=== PATIENT | female | born 1950 | race Caucasian/White ===

== ENCOUNTER → 2017-07-16 17:59 | Outpatient (CLI) | payer BC | END | disposition home or self-care (01) | LOC: D.MAMMO 15:30 | DX: Z12.31 Encounter for screening mammogram for malignant neoplasm of breast (principal) ==

== ENCOUNTER → 2017-07-28 16:48 | Outpatient (CLI) | payer BC | END | disposition home or self-care (01) | LOC: D.MAMMO 12:00 | DX: R92.8 Other abnormal and inconclusive findings on diagnostic imaging of breast (principal) ==

== ENCOUNTER → 2018-01-25 22:39 | Outpatient (CLI) | payer MEDICARE, BC | END | disposition home or self-care (01) | LOC: D.MAMMO 13:30 | DX: R92.0 Mammographic microcalcification found on diagnostic imaging of breast (principal); R92.8 Other abnormal and inconclusive findings on diagnostic imaging of breast ==

== ENCOUNTER 2018-08-12 10:27 | Day surgery (SDC) | payer MEDICARE, BC ==
[2018-08-11 11:20] LABS: HEMOGLOBIN 14.7 g/dL (12-16); MCH 29.9 pg (26.0-34.0); MCHC 34.2 g/dL (31.0-37.0); MCV 87.4 fL (80.0-100.0); MEAN PLATELET VOLUME 9.9 fL (7.4-10.4); RBC 4.92 10x6/uL (4.00-5.40); WBC 7.6 10x3/uL (4.8-10.8)
== END 2018-08-12 16:45 | disposition home or self-care (01) ==
LOC: D.OPS 10:27
PROVIDERS: Anesthesiology
DX: M21.621 Bunionette of right foot (principal)

== ENCOUNTER 2018-10-21 10:30 | Day surgery (SDC) | payer MEDICARE, BC ==
[2018-10-20 10:09] LABS: HEMATOCRIT 39.4 % (36.0-48.0); HEMOGLOBIN 13.5 g/dL (12-16); MCH 29.7 pg (26.0-34.0); MCHC 34.3 g/dL (31.0-37.0); MCV 86.6 fL (80.0-100.0); MEAN PLATELET VOLUME 9.2 fL (7.4-10.4); RBC 4.55 10x6/uL (4.00-5.40); RDW 13.1 % (11.5-14.5); WBC 5.9 10x3/uL (4.8-10.8)
[2018-10-20 10:19] LABS: CALC OSMOLALITY 284 mosm/kg (275-300); CALCIUM 9.2 mg/dL (8.5-10.1); CARBON DIOXIDE 31.3 mmol/L (21.0-32.0); CHLORIDE - SERUM 105 mmol/L (98-107); CREATININE - SERUM 0.8 mg/dL (0.6-1.3); POTASSIUM - SERUM 3.8 mmol/L (3.5-5.1); SODIUM 143 mmol/L (136-145); UREA NITROGEN 15 mg/dL (7-18); eGFR NON AFRICAN AMERICAN 76 mL/min (90-120)
[2018-10-20 10:22] LABS: GLUCOSE 82 mg/dL (74-106)
[~2018-10-21] VITALS: Ht 167.6 cm; Wt 65.8 kg
[~2018-10-21 10:30] MED LIST: CALAN SR240 MG PO; HCTZ25 MG PO; HYALURONIC ACID; MELATONIN 3 MG1 TAB PO; NEXIUM40 MG PO; SINGULAIR10 MG PO; TOPROL XL25 MG PO; ZOLOFT50 MG PO
[2018-10-21 12:35] VITALS: BP 154/82; Ht 167.6 cm; Wt 65.8 kg
--- NOTE | 2018-10-21 16:30 | NUR ---
REC'D FROM RR. FAMILY AT BEDSIDE. DRESSING CDI TO FOOT. ICE PACK IN PLACE. COLA BROUGHT TO PT.
--- NOTE | 2018-10-21 16:45 | NUR ---
FEELING ALITTLE NAUSEATED. ALCOHOL WIPES GIVEN TO PT AND SLATINE CRACKERS.
--- NOTE | 2018-10-21 17:00 | NUR ---
FL TRAY GIVEN TO PT. EATING SLOWLY. NAUSEA IS BETTER.
--- NOTE | 2018-10-21 18:10 | NUR ---
TOLERATED DIET. AMBULATED TO BATHROOM AND VOIDED WITHOUT DIFFICULTY. IV DC'D WITH CATHETER INTACT.
--- NOTE | 2018-10-21 18:25 | NUR ---
WRITTEN AND VERBAL DC INST. GIVEN TO PT. ICE PACKS SENT HOME WITH PT. VERBALIZED UNDERSTANDING.
--- NOTE | 2018-10-21 18:30 | NUR ---
DC'D HOME WITH FAMILY VIA PRIVATE VEHICLE. TAKEN TO VEHICLE VIA WC. STABLE AT TIME OF DC.
--- NOTE | 2018-11-04 17:49 | OP ---
PATIENT NAME: VEGA BALDERRAMA MEDICAL RECORD: [id number] :54 LOCATION:D.OPS ADMISSION DATE: SURGEON: RAY RASMUSSEN DATE OF OPERATION: 10/21/2018 SURGEON: Ray Rasmussen DPM PREOPERATIVE DIAGNOSES: 1. Hallux abductovalgus deformity, left foot. 2. Tailor's bunion, left foot. 3. Hammertoe, second toe, left foot. 4. Neuroma, third intermetatarsal space, left foot. POSTOPERATIVE DIAGNOSES: 1. Hallux abductovalgus deformity, left foot. 2. Tailor's bunion, left foot. 3. Hammertoe, second toe, left foot. 4. Neuroma, third intermetatarsal space, left foot. PROCEDURE: 1. Elijah/Cristian bunionectomy, left foot. 2. Tailor's bunionectomy, left foot. 3. Arthrodesis second proximal interphalangeal joint of left foot. 4. Excision neuroma, third intermetatarsal space, left foot. ANESTHESIA: General. HEMOSTASIS: Pneumatic ankle tourniquet inflated to 250 mmHg. ESTIMATED BLOOD LOSS: Minimal. MATERIALS: Two 2.5 mm headless Dart-Fire screws ([employer]) and one 9 mm Quick Staple ([employer]). INJECTABLES: 30 mL of 0.5% bupivacaine plain. The patient has longstanding history of pain associated with the above-mentioned foot pathologies. She is here today for surgical correction. We have discussed the proposed procedure, risks and benefits were reviewed. Complications were discussed. All questions were answered. She was appropriately consented for the above-mentioned procedures. The patient was brought in the operating room and placed on the operating table in supine position. A timeout was called with Dr. aRsmussen, who identified the patient, the surgical sites and the surgeries to be performed. Once appropriate anesthesia was obtained, the foot was prepped and draped in the usual aseptic manner. The pneumatic ankle tourniquet was inflated to 250 mmHg on the well-padded left ankle. PROCEDURE #1: Elijah/Cristian bunionectomy, left foot. Attention was directed to the dorsal aspect of the first metatarsophalangeal joint where a 6 cm linear incision was made just medial to the extensor hallucis OPERATIVE REPORT [id number] BREASHEARS,VEGA DRAKE longus tendon. This incision was carried deep to soft tissue with care being taken to retract all vital neurovascular structures. All bleeders were cauterized along the way. The first intermetatarsal space was then entered utilizing both sharp and blunt dissection. The conjoined tendon of the adductor hallucis muscle was noted at the base of the proximal phalanx and was sharply transected at this level. Attention was then directed further proximally to the level of fibular sesamoidal ligament and it too was sharply transected. The periosteum was then reflected from the head of the first metatarsal and the base of the proximal phalanx, thus exposing the hypertrophied medial eminence of the first metatarsal and the first metatarsophalangeal joint. Utilizing a sagittal saw, all hypertrophied bone was removed. Next, utilizing a sagittal saw, a V-shaped osteotomy was created in the head of the first metatarsal. This is a through and through osteotomy with the apex oriented distally. The capital fragment was shifted laterally and impacted upon the first metatarsal shaft. Next, utilizing manufacture's recommended technique, one 2.5 mm cannulated screw was placed across the osteotomy. All remaining over hanging bone from the medial aspect of the first metatarsal shaft was removed with a bone saw. Attention was then directed to the proximal phalanx where a V-shaped osteotomy was created utilizing a sagittal saw, this was a closing wedge with the apex oriented laterally. The wedge of bone was removed. The osteotomy was reduced. Next, utilizing manufacture's recommended technique, one 9 mm Quick Staple was placed across this osteotomy. Surgical site was then irrigated with copious amounts of normal sterile saline via bulb syringe. The periosteum was reapproximated and coapted using 3-0 Vicryl. The subQ was reapproximated and coapted utilizing 3-0 Vicryl. The skin was reapproximated and coapted utilizing 4-0 nylon. PROCEDURE #2: Tailor's bunion, left foot. Attention was directed to the lateral aspect of the left foot where a 4-cm linear incision was made directly over the fifth metatarsal head. This incision was carried deep to soft tissue with care being taken to retract all vital neurovascular structures. All bleeders were cauterized along the way. The periosteum was then reflected from the head of the fifth metatarsal, thus revealing the hypertrophied lateral eminence. Next, utilizing a sagittal saw, all hypertrophied bone was removed. All rough and sharp bone edges were smoothed with a rasp. The surgical site was then irrigated with copious amounts of normal sterile saline via bulb syringe. The periosteum was then reapproximated and coapted using 3-0 Vicryl. The subQ was then reapproximated and coapted using 3-0 Vicryl. The skin was then reapproximated and coapted utilizing 4-0 nylon. Arthrodesis, second toe, left foot. Attention was directed to the dorsal aspect of the second toe of the left foot where a 4-cm linear incision was made. This incision was carried deep to soft tissue with care being taken to retract all vital neurovascular structures. All bleeders were cauterized along the way. The extensor tendon was then transected at the level of the proximal interphalangeal joint. All soft tissue attachments were freed from the head of the proximal phalanx, thus exposing this aspect of the bone. Utilizing a sagittal saw, the head of the proximal phalanx was removed. All cartilage was then denuded from the base of the middle phalanx with a rongeur and rasp. Next, utilizing manufacture's recommended technique, one 2.5 mm x 20 mm headless Dart-Fire screw was placed across the proximal interphalangeal joint. Proper placement of the screw was confirmed via C-arm. The surgical site was then irrigated with copious amounts of normal sterile OPERATIVE REPORT [id number] VEGA BALDERRAMA saline via bulb syringe. The extensor tendon was then reapproximated and coapted using 3-0 Vicryl. The subQ was then reapproximated and coapted using 3-0 Vicryl. The skin was reapproximated and coapted using 4-0 nylon. The excision neuroma, third intermetatarsal space, left foot. Attention was directed to the third intermetatarsal space where a 3-cm linear incision was made. This incision was carried deep to soft tissue with care being taken to retract all vital neurovascular structures. All bleeders were cauterized along the way. The deep transverse intermetatarsal ligament was then identified and sharply transected. The neuroma was noted to reside just beneath this ligament. The neuroma was then traced as far proximally and distally as possible and sharply transected. The neuroma was removed from the field. The surgical site was then irrigated with copious amounts of normal sterile saline via bulb syringe. The surgical site was then investigated for any remaining pathological tissue and none was noted. The subQ was then reapproximated and coapted using 3-0 Vicryl. The skin was then reapproximated and coapted using 4-0 nylon. A dressing consisting of Xeroform, 4 x 4's, Kerlix, and Tommy bandage was applied to the left foot. The pneumatic ankle tourniquet was deflated and cap refill time is immediate to all digits of the left foot. The patient was discharged home with instructions to ice and elevate the left foot. She was dispensed a boot to further help offload the surgical site. She has my cell phone number for any afterhours difficulties. She was dispensed pain medication including [place] 7.5/325 and tramadol 50 mg. There were no complications with this procedure and we will follow up with her in the office next week. TRANSINT:[id number] Voice Confirmation ID: [id number] DOCUMENT ID: [id number] RAY RASMUSSEN at 1749 CC: [id number] DICTATION DATE: 10/21/18 1549 CHIEF ORTHOPTIST: 10/21/182008 [facility] 10/21/[address] [address]
== END 2018-10-21 18:30 | disposition home or self-care (01) ==
LOC: D.OPS 10:30 → D.PAN 13:30 → D.OPS 13:30
PROVIDERS: Anesthesiology
DX: M20.12 Hallux valgus (acquired), left foot (principal); M21.622 Bunionette of left foot; M20.42 Other hammer toe(s) (acquired), left foot; G57.62 Lesion of plantar nerve, left lower limb

== ENCOUNTER → 2019-03-23 10:53 | Outpatient (CLI) | payer MEDICARE, BC ==
[2018-10-21 12:35] VITALS: BMI 23.4
--- NOTE | 2019-03-25 16:51 | ST ---
PATIENT:VEGA BALDERRAMA MEDICAL RECORD: [id number] SEX: F LOCATION:[facility] ORDER #: ADMISSION DATE: 03/23/19 AGE OF PATIENT: 68 REFERRING PHYSICIAN: INTERPRETING PHYSICIAN: MARIANNA PERALTA MD DATE OF SERVICE: 03/23/2019 NUCLEAR STRESS TEST INDICATION: Chest pain, shortness of breath, hypertension, hyperlipidemia. She was exercised on standard Lexiscan protocol with 28 mCi of sestamibi injected at peak stress. 10 mCi used previously for rest images. FINDINGS: Gated SPECT reveals an excellent ejection fraction greater than 80% with good wall motion thickening and brightness throughout the segments. SPECT IMAGING: Cardiolite was used for a myocardial perfusion agent. There is homogeneous uptake throughout all segments at rest and stress with no evidence of inducible ischemia or previous infarction. OVERALL IMPRESSION: This is a normal rest-stress Cardiolite with no evidence of inducible ischemia or previous infarction. A gated SPECT reveals preserved ejection fraction greater than 80%. At this time I would evaluate noncardiac etiology of chest pain. TRANSINT:[id number] Voice Confirmation ID: [id number] DOCUMENT ID: [id number] MARIANNA PERALTA MD at 1651 CC: JANICE LEE MD [id number] DICTATION DATE: 03/23/19 1645 PHARMACIST INTERN: 03/24/19 0056 DEP CLI 03/23/19 [id number] [place] [address]
== END | disposition home or self-care (01) ==
LOC: D.HCCARDIO 10:53
PROVIDERS: ATTEND Internal Medicine Interventional Cardiology
DX: R00.2 Palpitations (principal)

== ENCOUNTER → 2019-04-18 12:32 | Outpatient (CLI) | payer MEDICARE, BC ==
[2018-10-21 12:35] VITALS: BMI 23.4
[~2019-04-18 12:32] MED LIST changes: +BETAPACE 80 MG80 MG PO
--- NOTE | 2019-04-26 12:04 | EC ---
PATIENT:VEGA BALDERRAMA DATE OF SERVICE: 04/18/19 SEX: F MEDICAL RECORD: [id number] DATE OF : 54 LOCATION:[facility] AGE OF PATIENT: 68 ADMISSION DATE: 04/18/19 REFERRING PHYSICIAN: INTERPRETING PHYSICIAN: MARIANNA RIOS MD ECHOCARDIOGRAM REPORT ECHO CHARGES 4 ECHO COMPLETE Date: 04/26/19 CLINICAL DIAGNOSIS: DYSPNEA/ATRIAL FIB ECHOCARDIOGRAPHIC MEASUREMENTS (adult normal given) AC root (d.<3.7cm) 3.6 cm LV Septum d (<1.2 cm> 1.3 cm Valve Excursion 2.0 cm LV Septum (systole) 1.4 cm Left Atria (s.<4.0cm> 4.1 cm LVPW d(<1.2cm) 1.2 cm RV (d.<2.3cm) 3.1 cm LVPW (sytole) 1.8 cm LV diastole(<5.6CM) 4.9 cm MV E-F(>70mm/sec) cm LV systole 3.0 cm LVOT Diameter 1.8 cm MV exc.(>10mm) 1.9 cm Est.ejection fraction (50-75%) % DOPPLER: LVIT cm/sec A 69.0 cm/sec E 98.0 cm/sec LA cm/sec RVSP 38 mmHg LVOT 108 cm/sec AOP1/2T m/s Asc. Ao 121 cm/sec RVOT 53 cm/sec RA cm/sec PA 95 cm/sec AV Gradient Peak 5.88 mmHg AV Mean 3.07 mmHg AV Area 2.4 cm MV Gradient Peak 5.18 mmHg MV Mean 1.44 mmHg MV Area cm COMMENTS: Platform Operations Director: 2 ROMA RUSH Senior Capital Markets Specialist: 1 Dr. Rios TAPE# PACS Pericardial Effusion N DATE OF SERVICE: FINDINGS: 1. Left ventricular chamber size is within normal limits. Left ventricular systolic function is normal at 65%. 2. The left atrium is mildly dilated at 4.1 cm. Right atrium and right ventricular chamber sizes are within normal limits. 3. Valvular structures have normal structure and motion. 4. Doppler interrogation reveals only trace mitral regurgitation, mild tricuspid regurgitation, no other valvular insufficiency or stenosis. ECHOCARDIOGRAM REPORT [id number] VEGA BALDERRAMA 5. No evidence of pericardial effusion or left ventricular thrombus. TRANSINT:[id number] Voice Confirmation ID: [id number] DOCUMENT ID: [id number] MARIANNA RIOS MD at 1204 CC: [id number] DICTATION DATE: 04/25/19 1137 CHIEF PHYSICAL THERAPIST: 04/25/19 1147 DEP CLI 04/18/[address] [address]
== END | disposition home or self-care (01) ==
LOC: D.HCCARDIO 12:32
PROVIDERS: ATTEND Internal Medicine Interventional Cardiology
DX: R06.02 Shortness of breath (principal)

== ENCOUNTER 2019-04-26 11:35 | Outpatient (CLI) | payer MEDICARE, BC ==
[~2019-04-26] VITALS: Ht 167.6 cm; Wt 68.0 kg
--- NOTE | ~2019-04-26 | HEMODYNAMI ---
PATIENT:VEGA BALDERRAMA MEDICAL RECORD: [id number] : 54 LOCATION:[facility] ADMISSION DATE: 04/26/19 Generatedon:04/26/201914:26 Patient name: VEGA BALDERRAMA Patient #: [id number] SS N: : 1950 Date of study: 04/26/2019 Page: Of Hemodynamic Procedure Report Patient Data Patient Demographics Procedure consent was obtained First Name: VEGA Gender: Female Last Name: TACOS : 1950 [facility] Initial: DRAKE Age: 68 year(s) Patient #: [id number] Race: Unknown Additional ID: [id number] Contact details [address]: [address] [place] [address] point State: [place] City: [place] Zip code: [address] Past Medical History Allergies Allergen Reaction Date Comments Reported Other allergy 04/26/2019 HYDROCODONE Admission Admission Data Admission Date: 04/26/2019 Admission Time: 11:35 Weight (lbs.): 149.92 Weight (kg.): 68 Lab Results Lab Result Date: 04/26/2019 Lab Result Time: 0:00 CBC Name Units Result Min Max Hematocrit % 39.2 -*(----)-- 42 54 Hemoglobin g/dl 13.5 --(*---)-- 13.5 17.5 Procedure Procedure Types Cath Procedure Diagnostic Procedure PPM/ICD PPM Dual Implant Procedure Description Procedure Date Procedure Date: 04/26/2019 Procedure Start Time: 13:22 Procedure End Time: 13:45 Procedure Staff Name Function Giovani Mujica RT Monitor Carl Escobar MD Assisting physician Rickey Garcia MD Performing Physician Luis Garcia RN Nurse Jazmyn Hendrickson RT Scrub Procedure Data Cath Procedure Fluoroscopy Diagnostic fluoroscopy Total fluoroscopy Time: 1.3 time: 1.3 min min Diagnostic fluoroscopy Total fluoroscopy dose: dose: 21.3 mGy 21.3 mGy Contrast Material Contrast Material Type Amount (ml) Isovue 300 0 Estimated blood loss: 5 ml Procedure Complications No complications Procedure Medications Medication Administration Route Dosage 0.9% NaCl I.V. 100 ml/hr Oxygen etCO2 Nasal cannula 2 l/min Lidocaine 1% added to field 20 Ancef (1Gm/50ml NS) I.V.P.B 1 g Ancef Irrigation Topical 1 g (1gm/500ml NS) Versed I.V. 2 mg Fentanyl I.V. 100 mcg Versed I.V. 0.5 mg Fentanyl I.V. 50 mcg Lidocaine 1% added to field 20 Ancef Irrigation Topical 1 g (1gm/500ml NS) Fentanyl I.V. 25 mcg Hemodynamics Rest HGB: 13.5 (g/dl) Heart Rate: 46 (bpm) Snapshots Pre Cath Intra NCS Post Cath Vital Signs Time Heart Resp SPO2 etCO2 NIBP (mmHg) Rhythm Pain Sedation Rate (ipm) (%) (mmHg) Status Level (bpm) 13:07:55 48 29 100 36.8 146/72(126) NSR 0 (11) 10(A) , No pain 13:12:14 47 19 100 29.2 130/64(107) NSR 0 (11) 10(A) , No pain 13:16:28 48 17 99 30 111/61(88) NSR 0 (11) 10(A) , No pain 13:21:40 42 15 100 0 131/58(102) NSR 0 (11) 10(A) , No pain 13:25:54 267 16 100 51 144/65(109) NSR 0 (11) 10(A) , No pain 13:30:08 48 22 99 0 104/66(76) NSR 0 (11) 9(A) , No pain 13:34:11 36 35 92 0 106/66(92) NSR 0 (11) 9(A) , No pain 13:39:17 42 16 93 40.5 129/65(93) NSR 0 (11) 9(A) , No pain 13:43:31 60 14 95 45 126/61(99) Paced 0 (11) 9(A) , No pain 14:06:47 48 13 95 41.3 138/78(115) Paced 0 (11) 9(A) , No pain 14:11:00 69 12 100 42.8 146/78(116) Paced 0 (11) 10(A) , No pain 14:15:11 69 15 100 41.2 143/82(108) Paced 0 (11) 10(A) , No pain 14:19:21 69 8 99 39.7 142/83(122) Paced 0 (11) 10(A) , No pain 14:23:33 64 9 99 30.7 140/80(126) Paced 0 (11) 10(A) , No pain Medications Time Medication Route Dose Verified Delivered Reason Notes Effectiv eness by by 13:14:53 0.9% NaCl I.V. 100 Luis Luis Per ml/hr Lorigan Lorigan physician RN RN 13:15:04 Oxygen etCO2 2 Luis Luis for low 02 Nasal l/min Lorigan Lorigan sats cannula RN RN 13:15:27 Lidocaine added 20ml Luis Luis for local 1% to vial Lorigan Lorigan anesthetic field x2 RN RN 13:16:26 Ancef I.V.P.B 1 g Luis Luis Per (1Gm/50ml Lorigan Lorigan physician NS) RN RN 13:19:28 Ancef Topical 1 g Luis Luis used for Irrigation Lorigan Lorigan procedure (1gm/500ml RN RN NS) 13:23:05 Versed I.V. 2 mg Luis Luis for Lorigan Lorigan sedation RN RN 13:23:16 Fentanyl I.V. 100 Luis Luis for mcg Lorigan Lorigan sedation RN RN 13:25:43 Versed I.V. 0.5 Luis Luis for mg Lorigan Lorigan sedation RN RN 13:25:52 Fentanyl I.V. 50 Luis Luis for mcg Lorigan Lorigan sedation RN RN 14:06:33 Lidocaine added 20ml Luis Luis for local 1% to vial Lorigan Lorigan anesthetic field x2 RN RN 14:06:53 Ancef Topical 1 g Luis Luis used for Irrigation Lorigan Lorigan procedure (1gm/500ml RN RN NS) 14:18:13 Fentanyl I.V. 25 Luis Luis for mcg Lorigan Lorigan sedation RN online communications manager Log Time Note 12:32:05 Signed procedure consent form obtained from patient. 12:32:07 Procedure Status Elective Heart Cath (OP). 12:32:09 Time tracking: Regular hours (M-F 7:00 - 5:00) 12:32:12 Plan of Care:Hemodynamics will remain stable., Cardiac rhythm will remain stable., Comfort level will be maintained., Respiratory function will remain adequate., Patient/ family verbilizes understanding of procedure., Procedure tolerated without complication., Recovers from procedure without complications.. 12:34:18 Patient Weight : 149.92 lbs 12:35:00 Patient allergic to Other allergyHYDROCODONE 12:35:15 Lab Result : Hematocrit 39.2 % 12:35:15 Lab Result : Hemoglobin 13.5 g/dl 12:35:30 Use device set JASON PPM 12:35:31 2-0 Ticron Multipack ([id number]) opened to sterile field. 12:35:32 5-0 Monocryl PS2 [id number] opened to sterile field. 12:35:32 3-0 Vicryl Single Pack [id number] opened to sterile field. 12:35:34 Mepilex Dressing ([id number]) opened to sterile field. 12:35:34 Cautery Pushbutton Pencil opened to sterile field. 12:35:34 Cautery Tip Digital Content Producer opened to sterile field. 12:35:35 Immobilizer Extra Large opened to sterile field. 12:39:25 Medtronic 4574-45 PPM Lead opened to sterile field. 12:39:25 Medtronic 4074-52 PPM Lead opened to sterile field. 12:39:[address] Generator [id number] opened to sterile field. 12:42:47 Medtronic healthcare sales representative ARTIE MORENO present for procedure. 12:50:20 Jazmyn Hendrickson RT(R) sent for patient. Start room use. 12:56:33 Patient received from Pre/Post Procedure Room to CCL 3 Alert and oriented. Tansferred to table in Supine position. 12:56:34 Warm blankets applied, and adriana hugger turned on for patient comfort. 12:56:35 ECG and BP/O2 sat monitors applied to patient. 12:56:35 Correct patient and procedure confirmed by team. 13:06:43 Vital chart was started 13:06:48 Baseline sample Acquired. 13:06:52 Rhythm: sinus bradycardia 13:06:54 Full Disclosure recording started 13:07:01 H&P Date Dictated: 04/18/2019 Within 30 days and on chart., H&P Addendum completed by physician on day of procedure. (MUST COMPLETE FOR ALL OUTPATIENTS). 13:07:02 Pre-op teaching completed and patient verbalized understanding. 13:07:02 Pre-procedure instructions explained to patient. 13:07:04 Family in waiting room. 13:07:06 Patient NPO since Midnight. 13:07:09 Is the patient allergic to Iodine/contrast media? No. 13:07:10 Is patient on blood thinner?Yes 13:07:13 ACC The patient was administered the following blood thiners within the last 24 hours: Eliquis 13:07:16 Patient diabetic? No. 13:09:45 Previous problem with sedation/anesthesia? No ? 13:11:46 Snore? Yes 13:11:48 Sleep apnea? No 13:11:49 Opens mouth fully? Yes 13:11:49 Deviated septum? No 13:11:50 Sticks out tongue? Yes 13:11:55 Airway obstruction? No ? 13:12:40 Dentures? No ? 13:13:16 Patient pain scale 0/10 ?. 13:14:53 0.9% NaCl 100 ml/hr I.V. was administered by Luis Garcia RN; Per physician; 13:15:04 Oxygen 2 l/min etCO2 Nasal cannula was administered by Luis Garcia RN; for low 02 sats; 13:15:13 IV patent on arrival in right forearm with 0.9% NaCl at O. 13:15:15 Lab results completed and on chart. 13:15:19 Left chest area was prepped with chlora-prep and draped in sterile fashion 13:15:21 Alarms reviewed by R. N. 13:15:23 Sharps counted by scrub and verified by R.N. 13:15:27 Lidocaine 1% 20ml vial x2 added to field was administered by Luis Garcia RN; for local anesthetic; 13:15:54 Pre sharps counted by scrub and verified by RN: Sutures: 7; Sponges: 5; Stick needles: 2; Skin needles: 2; Blade: 1; Cautery: 1 13:15:59 Grounding pad site Left thigh. 13:16:04 Grounding pad site free from injury. 13:16:26 Ancef (1Gm/50ml NS) 1 g I.V.P.B was administered by Luis Lorigan RN; Per physician; 13:19:28 Ancef Irrigation (1gm/500ml NS) 1 g Topical was administered by Luis Garcia RN; used for procedure; ::33 Final Timeout: patient, procedure, and site verified with staff and physician. All members of the team are in agreement. ::33 --------ALL STOP TIME OUT------ 13::38 Left chest site verified by team. 13:19:46 Fire Safety Assessment: A--An alcohol-based skin anteseptic being used preoperatively., B--The operative or invasive procedure is being performed above the xiphoid process or in the oropharynx., C--Open oxygen or nitrous oxide is being used. 13:19:50 Physical assessment completed. ASA score P 2 - A patient with mild systemic disease as per Rickey Garcia MD. 13:19:54 Sedation plan: IV Moderate Sedation Medication:Versed, Fentanyl 13:22:09 Procedure started. 13:22:18 Lidocaine 1% was administered to left subclavicular area by Carl Escobar MD . 13:23:05 Versed 2 mg I.V. was administered by Luis Garcia RN; for sedation; 13:23:15 Incision made to left subclavicular area. 13:23:16 Fentanyl 100 mcg I.V. was administered by Luis Garcia RN; for sedation; 13:25:43 Versed 0.5 mg I.V. was administered by Luis Garcia RN; for sedation; 13:25:52 Fentanyl 50 mcg I.V. was administered by Luis Garcia RN; for sedation; 13:26:21 Generator pocket made/opened. 13:28:12 Left subclavian vein accessed with 7Fr Peel Away Sheath. 13:28:16 Left subclavian vein accessed with 7Fr Peel Away Sheath. 13:29:30 Ventricular lead inserted and advanced. 13:30:14 Atrial lead inserted and advanced. 13:31:04 Ventricular lead positioned. 13:33:24 Ventricular lead tested. 13:33:28 Atrial lead positioned. 13:33:32 Atrial lead tested. 13:35:09 Peel-a-way sheath was split and removed. 13:35:09 Peel-a-way sheath was split and removed. 13:35:42 Ventricular lead attachment was completed with 2-0 ticron. 13:35:46 Atrial lead attachment was completed with 2-0 ticron. 13:36:33 PPM Dual was attached to lead(s) and inserted into pocket. 13:37:12 Generator was sutured in place with 2-0 ticron. 13:37:14 Device pocket was irrigated with Ancef. 13:37:30 Parameters-- Generator: Mode: DDDR. Lower Rate: 60bpm. Upper Rate: 120bpm. 13:37:51 Parameters--Ventricular P/R Wave: 9mV. Current: 0.6mA; Threshold: 0.5V; Impedence: 1061OHMS. 13:38:22 Parameters--Atrial P/R Wave: 2.8mV. Current: 0.9mA; Threshold: 0.7V; Impedence: 695OHMS. 13:38:48 Subcutaneous closure was completed with 3-0 vicryl. 13:43:37 Skin closure was completed with 5-0 monocryl. 13:43:51 Lt Chest incision was dressed with Mepilex dressing. 13:44:19 Procedure ended.(Physican Out) 13:44:57 Sharps counted by scrub and verified by R.N. 13:45:11 Post sharps counted by scrub and verified by RN: Sutures: 7; Sponges: 5; Stick needles: 2; Skin needles: 2; Blade: 1; Cautery: 1 13:45:16 Insertion/operative site no bleeding no hematoma. 13:45:21 Post-procedure physical assessment completed. ASA score P 2 - A patient with mild systemic disease as per Rickey Garcia MD. 13:45:24 Post procedure rhythm: paced 13:45:30 Post procedure instruction explained to patient.Patient verbalizes understanding. 13:45:31 Patient needs reinforcement of post procedure teaching. 13:45:37 Procedure and supply charges have been captured, reviewed, submitted and are correct. 13:45:39 Procedure Complication : No complications 13:45:43 See physician's report for complete and final results. 13:45:43 Vital chart was stopped 13:45:45 Report given to PCU. 13:45:52 Patient transfered to PCU with Bed. 13:45:55 Full Disclosure recording stopped 13:45:55 Procedure ended. 13:46:00 End room use (Document Last) 13:59:43 Post procedure check of PPM and Leads showed V-lead dislodged. Patient prepped and draped for lead revision. 14:00:16 Pre sharps counted by scrub and verified by RN: Sutures: 7; Sponges: 5; Stick needles: 0; Skin needles: 2; Blade: 1; Cautery: 1 14:02:40 Grounding pad site Left thigh. 14:02:42 Grounding pad site free from injury. 14:04:44 5-0 Monocryl PS2 Y495G opened to sterile field. 14:04:44 2-0 Ticron Multipack ([id number]) opened to sterile field. 14:04:44 3-0 Vicryl Single Pack [id number] opened to sterile field. 14:05:41 Vital chart was started 14:05:55 Procedure started. 14:05:55 Full Disclosure recording started 14:06:33 Lidocaine 1% 20ml vial x2 added to field was administered by Luis Garcia RN; for local anesthetic; 14:06:53 Ancef Irrigation (1gm/500ml NS) 1 g Topical was administered by Luis Garcia RN; used for procedure; 14:07:06 Lidocaine 1% was administered to left subclavicular area by Carl Escobar MD . 14:07:53 Incision made to left subclavicular area. 14:08:02 Device pocket was reopened. 14:08:37 Generator removed from pocket and detached from leads. 14:09:38 Ventricular lead repositioned. 14:10:35 Ventricular lead tested. 14:11:36 PPM Dual was attached to lead(s) and inserted into pocket. 14:14:03 Generator was sutured in place with 2-0 ticron. 14:14:07 Device pocket was irrigated with Ancef. 14:14:19 Subcutaneous closure was completed with 3-0 vicryl. 14:18:13 Fentanyl 25 mcg I.V. was administered by Luis Garcia RN; for sedation; 14:18:51 Skin closure was completed with 5-0 monocryl. 14:20:05 Lt Chest incision was dressed with Mepilex dressing. 14:21:48 Procedure ended.(Physican Out) 14:23:20 Fluoroscopy time 01.30 minutes. 14:23:47 Fluoroscopy dose: 21.3 mGy 14:23:47 Flurop Dose total: 21.3 14:23:57 Dose Area Product 257.38 mGy/cm. 14:24:00 Contrast amount:Isovue 300 0ml. 14:24:03 Sharps counted by scrub and verified by R.N. 14:24:52 Post sharps counted by scrub and verified by RN: Sutures: 7; Sponges: 5; Stick needles: 0; Skin needles: 2; Blade: 1; Cautery: 1 14:25:23 Post-procedure physical assessment completed. ASA score P 2 - A patient with mild systemic disease as per Rickey Garcia MD. 14:25:27 Post procedure rhythm: paced 14:25:30 Estimated blood loss: 5 ml 14:25:32 Post procedure instruction explained to patient.Patient verbalizes understanding. 14:25:33 Patient needs reinforcement of post procedure teaching. 14:25:40 Vital chart was stopped 14:25:41 See physician's report for complete and final results. 14:25:45 Report given to PCU. 14:25:56 End room use (Document Last) Device Usage Item Name Manufacture Quantity Catalog Hospital Part Current Minima l Lot# / Serial# Number Charge Number Stock Stock Code 2-0 Ticron Ethicon 2 [id number] [id number] 5 Multipack ([id number]) 3-0 Vicryl Ethicon 2 [id number] 161941 415787 037984 5 Single Pack [id number] 5-0 Monocryl Ethicon 2 Y495G 500380 554216 219264 5 PS2 Y495G Cautery Tip Microtek 1 [id number] 402663 527405 185742 5 Digital Content Producer [employer] Cautery Microtek 1 [id number] 056786 87536 130235 5 Pushbutton [employer] Inc[employer] Pencil Mepilex Cardinal 1 565454 883840 882220 029194 5 [facility] (151921) Immobilizer Cardinal 1 09-23673 373554 428949 099271 5 Extra Large Health Medtronic Medtronic 1 4074-52 347508 835069 475759 5 [id number] 4074-52 PPM EXP:11/04/2020 Lead [id number] Medtronic Medtronic 1 4574-45 956551 466613 760577 5 [id number] 4574-45 PPM EXP:07/26/2020 Lead [id number] Medtronic Medtronic 1 W1DR01 643692 2533741 382306 [id number] EXP:09/03/2020 Generator [id number] W1DR01 Signature Audit [place] Stage Time Signature Unsigned Intra-Procedure 04/26/2019 Giovani Mujica RT(R) 1:46:15 PM RT(R) 04/26/2019 1:58:00 PM Intra-Procedure 04/26/2019 Giovani Mujica 2:26:23 PM RT(R) Signatures Monitor : Giovani Mujica RT Signature : Date : Time : Performing Physician : Signature : Rickey Garcia MD Date : Time : Nurse : Luis Garcia Signature : RN Date : Time : [facility] [address] [place] [address]
[~2019-04-26 11:35] MED LIST changes: -BETAPACE 80 MG80 MG PO
[2019-04-26] MEDS ORDERED: BETAPACE 80 MG80 MG PO (11:54)
[2019-04-26 12:01] VITALS: BP 143/60; BMI 24.2
[2019-04-26 12:24] LABS: HEMATOCRIT 39.2 % (36.0-48.0); HEMOGLOBIN 13.5 g/dL (12-16); MCH 28.3 pg (26.0-34.0); MCHC 34.4 g/dL (31.0-37.0); MCV 82.2 fL (80.0-100.0); MEAN PLATELET VOLUME 10.3 fL (7.4-10.4); RBC 4.77 10x6/uL (4.00-5.40); RDW 12.9 % (11.5-14.5); WBC 6.2 10x3/uL (4.8-10.8)
[2019-04-26 12:36] LABS: ANION GAP 8.2 mmol/L (8-16); CALCIUM 9.7 mg/dL (8.5-10.1); CARBON DIOXIDE 32.7 mmol/L (21.0-32.0); CREATININE - SERUM 0.9 mg/dL (0.6-1.3); POTASSIUM - SERUM 3.9 mmol/L (3.5-5.1)
[2019-04-26 13:00] LABS: INR 1.01 (0.85-1.17); PROTIME 12.8 SECONDS (11.6-15.0)
[2019-04-26 14:51] VITALS: BP 112/76; Ht 167.6 cm; Wt 68.0 kg
--- NOTE | 2019-04-26 17:15 | NUR ---
RECIEVED REPORT FROM DAY SHIFT NURSE, PT SITTING UP IN BED EATING DINNER. FAMILY AT BED SIDE. PT C/O SLIGHT PAIN AT INCISIONAL SITE FROM PACEMKER THAT WAS PLACED EARLIER TODAY. DRSG C/D/I. NO SWELLING OR BLEEDING NOTED. WILL CALL [employer]ODUCTION ASSEMBLY SUPERVISOR TO ASK FOR PAIN MEDS.
--- NOTE | 2019-04-26 18:11 | NUR ---
ULTRAM 1 TAB GIVEN FOR C/O PAIN TO UPPER LEFT SHOULDER. RATES PAIN AT A 7 ON PAIN SCALE.
[2019-04-26 18:36] VITALS: BP 112/67
[2019-04-26 20:00] VITALS: BP 115/58
--- NOTE | 2019-04-26 20:33 | NUR ---
PT STATED THAT PAIN TO LEFT UPPER SHOULDER IS BETTER. IV TO RIGHT AC SL.
--- NOTE | 2019-04-26 22:48 | NUR ---
IN BED RESITNG WITH EYES CLOSED, RESPERATIONS EVEN AND UNLABORED.
--- NOTE | 2019-04-26 23:32 | NUR ---
ULTRAM 1 TAB GIVEN FOR C/O PAIN. RATES PAIN AT A 5 ON PAIN SCALE.
[2019-04-27] VITALS: BP 128/59
--- NOTE | 2019-04-27 02:58 | NUR ---
I have reviewed this patient and I concur with the Shift Assessment completed by the Licensed Practical Nurse today this shift.
--- NOTE | 2019-04-27 03:40 | NUR ---
RESTING WITH EYES CLOSED, RESPERATIONS EVEN, NO S/S DISTRESS NOTED.
[2019-04-27 04:00] VITALS: BP 123/63
--- NOTE | 2019-04-27 06:37 | NUR ---
ULTRAM 1 TAB GIVEN FOR C/O PAIN TO LEFT UPPER SHOULDER. RATES PAIN AT A 5 ON PAIN SCALE.
[2019-04-27 08:41] VITALS: BP 123/53
--- NOTE | 2019-04-27 10:57 | NUR ---
IV AND TELEMETRY DCD. DC PLANS GIVEN. UNDERSTANDING VOICED. ESCORTED TO CAR BY W/C.
--- NOTE | 2019-05-05 07:19 | OP ---
PATIENT NAME: VEGA BALDERRAMA MEDICAL RECORD: [id number] :54 LOCATION:D.CAT ADMISSION DATE: SURGEON: CARL GOMEZ MD DATE OF OPERATION: 04/26/2019 PREOPERATIVE DIAGNOSES: 1. Sick sinus syndrome with pauses. 2. Symptomatic bradycardia. POSTOPERATIVE DIAGNOSES: 1. Sick sinus syndrome with pauses. 2. Symptomatic bradycardia. PROCEDURE: 1. Left subclavian vein dual lead pacemaker placement. 2. Fluoroscopic interpretation. SURGEON: Carl Gomez MD CO-SURGEON: Rickey Justin MD REPORT OF PROCEDURE: The patient's left chest was prepped and draped in sterile fashion. A 20 mL of 1% lidocaine with epinephrine was infused into the surrounding tissues. A skin incision was made on the left superior lateral chest and a subcutaneous pouch was made over the pectoral fascia. Lawtons were used to cannulate the left subclavian vein times 2 and guidewires were advanced with ease. Fluoro was used to note that the wires were in good position in the venous system. Dilator trocar device was replaced over the wires and the wires and dilators were removed. The leads were advanced through the trocars. Once they were noted to be in the vena cava, then Dr. Justin positioned them appropriately in the atrium and ventricle. Once the leads were noted to be in good position and functioning appropriately, then these were sutured into place with 2-0 TiCron. The leads were affixed to the pacemaker generator, which was placed into the subcutaneous pouch and sutured to the pectoral fascia using a 2-0 Ti-Cron. The wound was then irrigated out with antibiotic solution. Subcutaneous tissues were reapproximated with interrupted 3-0 Vicryl and the skin was closed with running subcutaneous 5-0 Monocryl. COMPLICATIONS: None. CONDITION: Stable. ANESTHESIA: Local MAC. BLOOD LOSS: Minimal. TRANSINT:[id number] Voice Confirmation ID: [id number] DOCUMENT ID: [id number] OPERATIVE REPORT [id number] VEGA BALDERRAMA CARL GOMEZ MD at 0719 CC: [id number] DICTATION DATE: 04/26/19 1344 STIPPLER: 04/26/19 1401 DEP CLI 04/27/19 [id number] [place] [address]
--- NOTE | 2019-05-05 08:42 | OP ---
PATIENT NAME: BRANDI ARMENTA MEDICAL RECORD: [id number] :54 LOCATION:D.CAT ADMISSION DATE: SURGEON: BEKAH COKER MD DATE OF OPERATION: 04/26/2019 PROCEDURE: A lead portion of permanent pacemaker placement. INDICATION: Sick sinus syndrome with tachycardia as well as a junctional escape rhythms and pauses. SURGEON: Carl Escobar MD DESCRIPTION OF PROCEDURE: After left subclavian was cannulated via modified Seldinger technique via Dr. Escobar, first under fluoroscopic guidance, I placed the RV lead in RV apex without difficulty. After adequate R waves and thresholds were obtained, again under fluoroscopic guidance, I placed the right atrial lead in right atrial appendage without any difficulty. After adequate thresholds and P-waves were obtained, the leads were attached to appropriate poles of the generator and the pocket was closed via Dr. Escobar. IMPRESSION: Successful lead portion on Brandi Armenta. ESTIMATED BLOOD LOSS: Minimal. DISPOSITION: To the floor, stable. TRANSINT:[id number] Voice Confirmation ID: [id number] DOCUMENT ID: [id number] BEKAH COKER MD at 0842 CC: [id number] DICTATION DATE: 04/26/19 1349 EXTENSION SPECIALIST: 04/26/19 1414 DEP CLI 04/27/[address] [address]
== END 2019-04-27 10:58 | disposition home or self-care (01) ==
LOC: D.CATH 11:35 → D.M2 14:31 → D.CATH 04-27 10:58
PROVIDERS: ATTEND Internal Medicine Interventional Cardiology
DX: I49.5 Sick sinus syndrome (principal); R00.1 Bradycardia, unspecified; R00.0 Tachycardia, unspecified

== ENCOUNTER → 2019-11-10 18:17 | Outpatient (CLI) | payer MEDICARE, BC ==
[2019-04-26 14:51] VITALS: BMI 24.2
[~2019-11-10 18:17] MED LIST changes: +BETAPACE 80 MG80 MG PO
== END | disposition home or self-care (01) ==
LOC: D.MAMMO 11-01 14:30
PROVIDERS: ATTEND Family Medicine
DX: Z12.31 Encounter for screening mammogram for malignant neoplasm of breast (principal)

== ENCOUNTER → 2019-12-06 11:21 | Outpatient (CLI) | payer MEDICARE, BC ==
[2019-04-26 14:51] VITALS: BMI 24.2
== END | disposition home or self-care (01) ==
LOC: D.HCCECHO 11:21
PROVIDERS: ATTEND Internal Medicine Interventional Cardiology
DX: R06.09 Other forms of dyspnea (principal)

== ENCOUNTER → 2021-01-09 12:40 | Outpatient (CLI) | payer MEDICARE, BC ==
[2019-04-26 14:51] VITALS: BMI 24.2
--- NOTE | ~2021-01-09 | EC ---
PATIENT:VEGA BALDERRAMA DATE OF SERVICE: 01/09/21 SEX: F MEDICAL RECORD: [id number] DATE OF : 54 LOCATION:D[facility] AGE OF PATIENT: 70 ADMISSION DATE: 01/09/21 REFERRING PHYSICIAN: INTERPRETING PHYSICIAN: BEKAH COKER MD ECHOCARDIOGRAM REPORT ECHO CHARGES 4 ECHO COMPLETE Date: 01/09/21 CLINICAL DIAGNOSIS: HX OF HTN/PACEMAKER ASSESS EF AND VALVES ECHOCARDIOGRAPHIC MEASUREMENTS (adult normal given) AC root (d.<3.7cm) 3.3 cm LV Septum d (<1.2 cm> 1.2 cm Valve Excursion 1.8 cm LV Septum (systole) 1.5 cm Left Atria (s.<4.0cm> 3.8 cm LVPW d(<1.2cm) 1.3 cm RV (d.<2.3cm) 3.8 cm LVPW (sytole) 1.7 cm LV diastole(<5.6CM) 4.4 cm MV E-F(>70mm/sec) cm LV systole 2.8 cm LVOT Diameter 1.9 cm MV exc.(>10mm) 1.2 cm Est.ejection fraction (50-75%) % DOPPLER: LVIT cm/sec A 55.0 cm/sec E 66.0 cm/sec LA cm/sec RVSP 21 mmHg LVOT 92 cm/sec AOP1/2T m/s Asc. Ao 125 cm/sec RVOT 96 cm/sec RA cm/sec PA 110 cm/sec AV Gradient Peak 6.23 mmHg AV Mean 3.52 mmHg AV Area 2.1 cm MV Gradient Peak 2.09 mmHg MV Mean 0.86 mmHg MV Area cm COMMENTS: Coating Manager: 2 [employer] Aide: 3 Dr. Justin TAPE# PACS Pericardial Effusion N DATE OF SERVICE: Adequate 2D, color flow imaging, spectral Doppler, and M-Mode FINDINGS: Borderline LVH. LV internal dimension is normal. Wall motion is normal. EF is greater than or equal to 55%. Aortic valve is sclerotic. No evidence of stenosis by Doppler interrogation. Left atrium is normal at 3.8 cm. Mitral valve shows no prolapse. Trace MR. Right side is grossly normal. Mild TR. Incidental note is made of pacemaker lead in the RV apex. ECHOCARDIOGRAM REPORT [id number] VEGA BALDERRAMA TRANSINT:[id number] Voice Confirmation ID: [id number] DOCUMENT ID: [id number] BEKAH COKER MD CC: [id number] DICTATION DATE: 01/10/21 1418 PUMP SERVICER SUPERVISOR: 01/10/21 1645 DEP CLI 01/09/21 [id number] [place] [address]
== END | disposition home or self-care (01) ==
LOC: D.HCCECHO 12:40
PROVIDERS: ATTEND Internal Medicine Interventional Cardiology
DX: I10 Essential (primary) hypertension (principal)

== ENCOUNTER → 2021-01-14 11:54 | Outpatient (CLI) | payer MEDICARE, BC ==
[2019-04-26 14:51] VITALS: BMI 24.2
== END | disposition home or self-care (01) ==
LOC: D.LAB 11:54
PROVIDERS: ATTEND Internal Medicine Pulmonary Disease
DX: Z11.52 Encounter for screening for COVID-19 (principal)

== ENCOUNTER → 2021-01-18 10:56 | Outpatient (CLI) | payer MEDICARE, BC ==
[2019-04-26 14:51] VITALS: BMI 24.2
[2021-01-18 13:20] LABS: BASOPHILS 0.2 % (0-2); EOSINOPHILS 0.7 % (0-7); HEMATOCRIT 37.2 % (36.0-48.0); HEMOGLOBIN 11.7 g/dL (12-16); IMMATURE GRANULOCYTES 0.1 % (0-5); LYMPHOCYTE ABS# 3.09 10x3/uL (1.18-3.74); LYMPHOCYTES 38.5 % (15-50); MCH 24.5 pg (26.0-34.0); MCHC 31.5 g/dL (31.0-37.0); MCV 77.8 fL (80.0-100.0); MEAN PLATELET VOLUME 9.2 fL (7.4-10.4); NEUTROPHIL ABS# 4.12 10x3/uL (1.56-6.13); NEUTROPHILS 51.5 % (40-80); RBC 4.78 10x6/uL (4.00-5.40); RDW 15.3 % (11.5-14.5)
[2021-01-18 13:23] LABS: PLATELET COUNT 296 10x3/uL (130-400)
[2021-01-19 13:10] LABS: IMMUNOGLOBULIN A <5 mg/dL (87-352)
[2021-01-21 16:09] LABS: IGG SUBCLASS 1 507 mg/dL (248-810); IGG SUBCLASS 2 212 mg/dL (130-555); IGG SUBCLASS 3 31 mg/dL (15-102); IGG SUBCLASS 4 2 mg/dL (2-96); IGGS - IGG SERUM 854 mg/dL (586-1602)
== END | disposition home or self-care (01) ==
LOC: D.LAB 08:00 → D.RT 11:00
PROVIDERS: ATTEND Internal Medicine Pulmonary Disease
DX: R06.09 Other forms of dyspnea (principal)